=== PATIENT | female | born 1975 | race Caucasian/White ===

== ENCOUNTER 2017-05-05 16:44 | Emergency (ER) | payer OTHER ==
[~2017-05-05] VITALS: Ht 157.5 cm; Wt 70.0 kg
[2017-05-05 17:05] VITALS: BP 139/83; PULSE 79; RESP 16; TEMP 98.2; O2SAT 99
== END 2017-05-05 20:40 | disposition left against medical advice (07) ==
LOC: NED 16:44
DX: H57.12 Ocular pain, left eye (principal)
CPT/HCPCS: 99281